=== PATIENT | female | born 1975 | race Hispanic/Latino ===

== ENCOUNTER 2017-12-13 18:04 | Emergency (ER) | payer OTHER ==
[~2017-12-13] VITALS: Ht 160 cm; Wt 74.4 kg
[2017-12-13] MEDS ORDERED: GUAIFENESIN AC473 ML PO (21:19)
== END 2017-12-13 21:45 | disposition home or self-care (01) ==
LOC: ED 18:04
DX: J20.9 Acute bronchitis, unspecified (principal)
CPT/HCPCS: 99283